=== PATIENT | male | born 2000 | race Caucasian/White ===

== ENCOUNTER 2021-03-14 19:50 | Emergency (ER) | payer BC ==
[~2021-03-14] VITALS: Ht 180.3 cm; Wt 77.1 kg
--- NOTE | 2021-03-14 19:52 | NUR ---
PT JOSEY GARZAS. TAKEN TO BED 4
[2021-03-14 19:55] VITALS: BP 128/92
--- NOTE | 2021-03-14 19:55 | NUR ---
SEE COMPLETE ASSESSMENT
[2021-03-14] MEDS ORDERED: ONDANSETRON 4 MG ODT PO ONE (20:00)
--- NOTE | 2021-03-14 20:11 | NUR ---
Dr. Negro examining patient.
[2021-03-14] MEDS ORDERED: ONDA4TAB PO (20:19)
--- NOTE | 2021-03-14 21:20 | NUR ---
Patient presented to facility under the influence of Drugs. Patient is currently ambulatory with steady gait, able to walk unassisted. Positive gag reflex. Alert and oriented. Is not driving self for discharge out of facility.
[2021-03-14 21:25] VITALS: BP 110/45
== END 2021-03-14 21:25 | disposition home or self-care (01) ==
LOC: MED 19:50
DX: F12.188 Cannabis abuse with other cannabis-induced disorder (principal); F12.10 Cannabis abuse, uncomplicated
CPT/HCPCS: 71045; 99283; Q0162; Q0092